=== PATIENT | female | born 1965 | race Caucasian/White ===

== ENCOUNTER 2019-03-16 12:03 | Emergency (ER) | payer OTHER ==
--- NOTE | 2019-03-16 12:37 | EDM.PDOC ---
ED HPI GENERAL MEDICAL PROBLEM - General Chief Complaint: Skin Complaint Stated Complaint: RASH ON RT SIDE BENEATH ARMPIT Time Seen by Provider: 03/16/19 12:20 Source of Information: Reports: Patient History Limitations: Reports: No Limitations - History of Present Illness INITIAL COMMENTS - FREE TEXT/NARRATIVE: History of present illness: []Patient has a rash on her right side and is painful. Review of systems: As per history of present illness and below otherwise all systems reviewed and negative. Past medical history: As per history of present illness and as reviewed below otherwise noncontributory. Surgical history: As per history of present illness and as reviewed below otherwise noncontributory. Social history: No reported history of drug or alcohol abuse. Family history: As per history of present illness and as reviewed below otherwise noncontributory. Physical exam: General: Well developed, well nourished in NAD HEENT: Atraumatic, normocephalic, pupils reactive, negative for conjunctival pallor or scleral icterus, mucous membranes moist, throat clear, neck supple, nontender, trachea midline. Lungs: Clear to auscultation, breath sounds equal bilaterally, chest with her herpetic type rash right anterior axillary line low the breast level Heart: S1S2, regular, negative for clicks, rubs, or JVD. Abdomen: NABS, Soft, nondistended, nontender. Negative for masses or hepatosplenomegaly. Negative for costovertebral tenderness. Pelvis: Stable nontender. Genitourinary: Deferred. Rectal: Deferred. Extremities: Atraumatic, negative for cords or calf pain. Neurovascular unremarkable. Neuro: Awake, alert, oriented. Cranial nerves II through XII unremarkable. Cerebellum unremarkable. Motor and sensory unremarkable throughout. Exam nonfocal. Skin:warm and dry Diagnostics: None Therapeutics: None ED Course: Stable Impression: Shingles Prescriptions: Acyclovir Plan: Take meds as directed, follow up with your primary care physician, return to ER if symptoms worsen or change. Definitive disposition and diagnosis as appropriate pending reevaluation and review of above. - Related Data Allergies Allergy/AdvReac Type Severity Reaction Status Date / Time prednisone Allergy Severe Hypertensio Verified 07/21/18 14:11 n cefaclor [From [facility]] Allergy Intermediate Itch Verified 07/21/18 14:11 cefuroxime axetil Allergy Intermediate Rash Verified 07/21/18 14:11 [From Ceftin] erythromycin base Allergy Intermediate Rash Verified 07/21/18 14:11 [Erythromycin Base] Penicillins Allergy Intermediate Rash Verified 07/21/18 14:11 azithromycin [From Zithromax] Allergy Other Verified 07/21/18 14:11 cefadroxil [From Duricef] Allergy Other Verified 07/21/18 14:11 ciprofloxacin Allergy Other Verified 07/21/18 14:11 clarithromycin Allergy Other Verified 07/21/18 14:11 dexamethasone Allergy Other Verified 07/21/18 14:11 prednisolone Allergy Other Verified 07/21/18 14:11 Sulfa (Sulfonamide Allergy Other Verified 07/21/18 14:11 Antibiotics) Home Meds: Home Meds Fluticasone Propionate [Flonase] 1 spray INH Q12HR 06/08/14 [History] Loratadine [Claritin] 10 mg PO DAILY 06/08/14 [History] Acyclovir [Zovirax] 800 mg PO 5XDAY #50 tab 03/16/19 [Rx] Past Medical History Genitourinary History: Reports: Renal Calculus - Past Surgical History Female Surgical History: Reports: Lithotripsy/[facility] ED ROS GENERAL - Review of Systems Review Of Systems: ROS reveals no pertinent complaints other than HPI. ED EXAM, SKIN/RASH Exam: See Below Departure - Departure Time of Disposition: 12:36 Disposition: Home, Self-Care 01 Condition: Good Clinical Impression: Shingles Qualifiers: Herpes zoster complications: without complications Qualified Code(s): B02.9 - Zoster without complications - Discharge Information *PRESCRIPTION DRUG MONITORING PROGRAM REVIEWED*: No *COPY OF PRESCRIPTION DRUG MONITORING REPORT IN PATIENT MAREK: No Prescriptions: Acyclovir [Zovirax] 800 mg PO 5XDAY #50 tab Referrals: Tanesha Trevino DO [Primary Care Provider] - Additional Instructions: The following information is given to patients seen in the emergency department who are being discharged to home. This information is to outline your options for follow-up care. We provide all patients seen in our emergency department with a follow-up referral. The need for follow-up, as well as the timing and circumstances, are variable depending upon the specifics of your emergency department visit. If you don't have a primary care physician on staff, we will provide you with a referral. We always advise you to contact your personal physician following an emergency department visit to inform them of the circumstance of the visit and for follow-up with them and/or the need for any referrals to a consulting specialist. The emergency department will also refer you to a specialist when appropriate. This referral assures that you have the opportunity for follow-up care with a specialist. All of these measure are taken in an effort to provide you with optimal care, which includes your follow-up. Under all circumstances we always encourage you to contact your private physician who remains a resource for coordinating your care. When calling for follow-up care, please make the office aware that this follow-up is from your recent emergency room visit. If for any reason you are refused follow-up, please contact the [facility] Emergency Department at and asked to speak to the emergency department charge nurse. Take meds as directed, follow up with your primary care physician, return to ER if symptoms worsen or change. [facility] [address] [place] [id number]
[2019-03-16 12:52] VITALS: BP 124/65
== END 2019-03-16 12:50 | disposition home or self-care (01) ==
LOC: MW.ED 12:03
DX: B02.9 Zoster without complications (principal); Z88.5 Allergy status to narcotic agent; Z88.1 Allergy status to other antibiotic agents; Z88.0 Allergy status to penicillin; Z88.2 Allergy status to sulfonamides; Z79.899 Other long term (current) drug therapy
CPT/HCPCS: 99282